=== PATIENT | female | born 1985 | race Caucasian/White ===

== ENCOUNTER 2017-07-12 11:57 | Emergency (ER) | payer MEDICAID | END 2017-07-12 14:20 | disposition home or self-care (01) | LOC: FTE 11:57 | DX: O99.89 Other specified diseases and conditions complicating pregnancy, childbirth and the puerperium (principal); M79.605 Pain in left leg; Z3A.36 36 weeks gestation of pregnancy | CPT/HCPCS: 93971; 99283 ==

== ENCOUNTER 2017-07-26 09:10 | Inpatient (IN) | payer MEDICAID ==
[2017-07-26 09:47] LABS: ADD MAN DIFF? NO
[2017-07-26 09:51] LABS: WHITE BLOOD COUNT 8.1 10^3/ul (4.8-10.8)
[2017-07-26 09:51] LABS: BASOPHILS % 0.2 % (0.0-2.0); HEMATOCRIT 38.8 % (37.0-47.0); LYMPHOCYTES # 1.1 10^3/ul (0.8-2.9); LYMPHOCYTES % 13.5 % (15.0-51.0); MEAN CORPUSCULAR HEMOGLOBIN 29.5 pg (29.0-33.0); MEAN CORPUSCULAR HGB CONC 33.5 g/dl (32.0-37.0); MEAN CORPUSCULAR VOLUME 88.2 fl (82.0-101.0); MEAN PLATELET VOLUME 9.2 fl (7.4-10.4); MONOCYTE # 0.3 10^3/ul (0.3-0.9); MONOCYTES % 3.9 % (0.0-11.0); NEUTROPHIL # 6.6 10^3/ul (1.6-7.5); NEUTROPHILS % 81.7 % (39.0-77.0); PLATELET COUNT 213 10^3/UL (140-415); RED CELL DISTRIBUTION WIDTH 15.3 % (11.5-14.5)
[2017-07-26] MEDS ORDERED: LACTATED RINGER'S 1,000 ML IV (10:00)
[2017-07-26] MEDS ORDERED: LIDOCAINE 1% (MPF) 30 ML INJ INJ (10:00)
[2017-07-26] MEDS ORDERED: BUTORPHANOL 2 MG INJ IV (10:00)
[2017-07-26] MEDS ORDERED: MISOPROSTOL 200 MCG TAB PR ×2 (10:00→12:30)
[2017-07-26] MEDS ORDERED: METHYLERGONOVINE 0.2 MG INJ IM ×2 (10:00→12:30)
[2017-07-26] MEDS ORDERED: OXYTOCIN 30 UNITS/LR 500 ML IV ×2 (10:00→12:30)
[2017-07-26] MEDS ORDERED: CARBOPROST 250 MCG INJ IM ×2 (10:00→12:30)
[2017-07-26] MEDS ORDERED: AMPICILLIN 2 GM/NS (PMX) 100 ML (10:07)
[2017-07-26] MEDS: LACTATED RINGER'S 1,000 ML IV (10:09)
[2017-07-26] MEDS: AMPICILLIN 2 GM/NS (PMX) 100 ML IVPB (10:10)
[2017-07-26] MEDS: OXYTOCIN 30 UNITS/LR 500 ML IV ×3 (10:46→12:04)
[2017-07-26 10:56] LABS: HEPATITIS B SURFACE ANTIGEN NEGATIVE (NEGATIVE)
[2017-07-26 10:59] LABS: INR 0.91; PROTIME 12.3 Sec (11.9-14.9)
[2017-07-26 11:00] LABS: PARTIAL THROMBOPLASTIN TIME 29.7 Sec (25.0-35.0)
[2017-07-26] MEDS: IBUPROFEN 600 MG TAB PO ×3 (11:31→23:31)
[2017-07-26] MEDS ORDERED: ZOLPIDEM 5 MG TAB PO (12:30)
[2017-07-26] MEDS ORDERED: OXYCODONE/ASPIRIN (4.88/325) TAB PO (12:30)
[2017-07-26] MEDS: BENZOCAINE 20% 56 ML SPRAY TOP (13:26)
[2017-07-26] MEDS: WITCH HAZEL/GLYCERIN PAD PR (13:26)
[2017-07-26] MEDS: LANOLIN 7 GM TUBE TOP (13:26)
[2017-07-26] MEDS: OXYCODONE/ASPIRIN (4.88/325) TAB PO (14:33)
[2017-07-26 14:56] LABS: RAPID PLASMA REAGIN NONREACTIVE (NR)
[2017-07-26] MEDS: SENNA/DOCUSATE NA (8.6MG/50MG) TAB PO (21:30)
[2017-07-27] MEDS: IBUPROFEN 600 MG TAB PO ×3 (05:36→18:00)
[2017-07-27] MEDS: SENNA/DOCUSATE NA (8.6MG/50MG) TAB PO ×2 (09:01→21:51)
[2017-07-27 11:11] LABS: ADD MAN DIFF? NO
[2017-07-27 11:16] LABS: BASOPHILS % 0.4 % (0.0-2.0); EOSINOPHILS # 0.1 10^3/ul (0.0-0.5); EOSINOPHILS % 0.9 % (0.0-7.0); HEMATOCRIT 32.4 % (37.0-47.0); HEMOGLOBIN 10.8 g/dl (12.0-16.0); LYMPHOCYTES # 1.9 10^3/ul (0.8-2.9); LYMPHOCYTES % 23.6 % (15.0-51.0); MEAN CORPUSCULAR HEMOGLOBIN 29.6 pg (29.0-33.0); MEAN CORPUSCULAR HGB CONC 33.3 g/dl (32.0-37.0); MEAN CORPUSCULAR VOLUME 88.8 fl (82.0-101.0); MEAN PLATELET VOLUME 9.8 fl (7.4-10.4); MONOCYTE # 0.6 10^3/ul (0.3-0.9); MONOCYTES % 7.5 % (0.0-11.0); NEUTROPHIL # 5.5 10^3/ul (1.6-7.5); NEUTROPHILS % 66.9 % (39.0-77.0); PLATELET COUNT 182 10^3/UL (140-415); RED BLOOD COUNT 3.65 10^6/ul (4.20-5.40); RED CELL DISTRIBUTION WIDTH 15.9 % (11.5-14.5)
[2017-07-27 11:16] LABS: WHITE BLOOD COUNT 8.2 10^3/ul (4.8-10.8)
[2017-07-27] MEDS: OXYCODONE/ASPIRIN (4.88/325) TAB PO (21:50)
[2017-07-28] MEDS: IBUPROFEN 600 MG TAB PO ×4 (06:36→17:17)
[2017-07-28] MEDS: SENNA/DOCUSATE NA (8.6MG/50MG) TAB PO (10:11)
[2017-07-28] MEDS: DIPHTH/TET/ACEL PERTUSS (ADULT) 0.5 ML VIAL IM* (15:31)
[2017-07-28] MEDS: BENZOCAINE 20% 56 ML SPRAY TOP (17:17)
[2017-07-28] MEDS: WITCH HAZEL/GLYCERIN PAD PR (17:17)
[2017-07-28] MEDS: LANOLIN 7 GM TUBE TOP (17:17)
== END 2017-07-28 19:06 | disposition home or self-care (01) | DRG 775 ==
LOC: OBT 09:10 → L-D 09:11 → OBT 09:52 → L-D 09:30 → PP1 12:28
PROVIDERS: Obstetrics & Gynecology
PROC: 10E0XZZ Delivery of Products of Conception, External Approach (ICD-10-PCS; principal; 2017-07-26)
DX: O80 Encounter for full-term uncomplicated delivery (principal); Z3A.38 38 weeks gestation of pregnancy; Z37.0 Single live birth
CPT/HCPCS: 85025; 85610; 85730; 86592; 86850; 86900; 86901; 87340; 90715